=== PATIENT | male | born 1945 | race Native Hawaiian/Other Pacific Islander ===

== ENCOUNTER 2016-08-14 08:06 | Outpatient (CLI) | payer OTHER, MEDICARE | END 2016-08-14 19:05 | disposition home or self-care (01) | LOC: CT 08:06 | DX: I71.4 Abdominal aortic aneurysm, without rupture (principal) | CPT/HCPCS: 36415; 82565; 84520; Q9963 ==

== ENCOUNTER 2016-09-19 09:44 | Outpatient (CLI) | payer OTHER, MEDICARE | END 2016-09-19 11:00 | disposition home or self-care (01) | LOC: CT 09:44 | DX: R59.0 Localized enlarged lymph nodes (principal); R93.8 Abnormal findings on diagnostic imaging of other specified body structures | CPT/HCPCS: 36415; 82565; 84520; Q9963 ==